=== PATIENT | male | born 1985 | race Caucasian/White ===

== ENCOUNTER 2025-01-26 16:28 | Emergency (ER) | payer OTHER, SELFPAY ==
[2025-01-26 16:34] VITALS: BP 150/91
[2025-01-26 16:53] LABS: Hematocrit 41.6 % (39.0-52.0); Hemoglobin 13.9 g/dL (13.0-18.0); Mean Corp Hgb Conc. 33.4 g/dL (33.0-37.0); Mean Corpuscular Volume 90.8 fL (80.0-94.0); Nucleated Red Blood Cells % 0 % (-); Platelet Count 214 10^3/uL (130-400); Red Cell Dist. Width 12.1 % (11.5-14.5)
[2025-01-26 17:16] LABS: ALT (SGPT) 30 U/L (0-50); AST (SGOT) 28 U/L (17-59); Albumin 4.4 g/dl (3.5-5.0); Alkaline Phosphatase 35 U/L (38-126); Blood Urea Nitrogen 24 mg/dl (9-20); Calcium 9.0 mg/dl (8.4-10.2); Carbon Dioxide 27 mmol/L (22-30); Chloride 106 mmol/L (98-107); Glucose 107 mg/dl (70-99); Potassium 4.4 mmol/L (3.5-5.1); Sodium 139 mmol/L (135-145); Total Protein 7.2 g/dl (6.3-8.2); eGFR > 60.00
[2025-01-26 17:28] LABS: Troponin I < 0.012 ng/ml
[2025-01-26 18:00] VITALS: BMI 26.8
[2025-01-26 18:05] VITALS: BP 133/84
--- NOTE | 2025-01-26 18:13 | ED.GENMED ---
History of Present Illness
General
Chief Complaint: Chest Pain
Source: patient
Time Seen by Provider: 01/26/25 17:58
History of Present Illness
History of Present Illness:
39-year-old male presents to the emergency room complaining of chest pain. Patient has been having chest pain on and off for quite some time. Recently there was a family member who had a heart attack prompting him to be more concerned about the
chest discomfort. Patient is also been concerned about his blood pressure. He measures his blood pressure every day and frequently it is in the 160s. He has an appointment with his primary care provider tomorrow to address this. Patient states
the episode of chest pain that brought him to the emergency room today started this morning. It went away about a half an hour ago. His episodes of chest pain are not related to any sort of exertion or activity. No limitation in his exercise
tolerance. He is a former smoker having quit 7 years ago.
Phy Exam
Physical Exam
Physical Exam:
General: Awake, Alert, Oriented X3. No acute distress.
Vitals: unremarkable
Head: Atraumatic
Eyes: Pupils equal, EOMI
Throat: Airway intact, no exudates
Neck: Trachea midline
Lungs: Clear and equal b/l
Heart: Regular rate, no murmurs
Abd: Soft, Nontender, No pulsatile mass
Neuro: Nonfocal
Skin: Warm, dry, no rash
Extremities: pulses equal b/l, no edema
Scores
Heart Score for Chest Pain Patients
STEMI patient?: No
History: Slightly or Non-Suspicious
ECG: Normal
Age: </= 45 years
Risk Factors: No Risk Factors
Troponin: </= Normal Limit
Heart Score for Chest Pain Patients: 0
Heart Score Risk: 2.5% MACE over next 6 weeks
Course
Orders/Labs/Results
Orders:
Orders
01/26/25 16:33
Electrocardiogram (*1) Urgent
Reason for Study: Chest Pain
01/26/25 16:34
EKG- Treatment ONCE
01/26/25 16:47
Complete Blood Count/With Diff Urgent
Comprehensive Metabolic Panel Urgent
Troponin I Urgent
01/26/25 18:13
CR Chest - 2 Views Urgent
Comment:
Reason For Exam: chest pain
01/26/25 19:02
EKG [Electrocardiogram (*1)] Urgent
Reason for Study: Chest Pain
EKG- Treatment ONCE
01/26/25 19:20
Troponin I Urgent
Abnormal Lab Results
01/26/25
16:47
RBC 4.58 L 10^6/uL
(4.70-6.10)
BUN 24 H mg/dl
(9-20)
Glucose 107 H mg/dl
(70-99)
Alkaline Phosphatase 35 L U/L
(38-126)
01/26/25 16:47
01/26/25 16:47
Vital Signs
Initial and Last Documented VS:
Initial Vital Signs
Temp Pulse Resp BP Pulse Ox
98.3 F 74 16 150/91 97
01/26/25 16:34 01/26/25 16:34 01/26/25 16:34 01/26/25 16:34 01/26/25 16:34
Last Documented Vital Signs
Temp Pulse Resp BP Pulse Ox
98.3 F 63 15 130/78 99
01/26/25 16:34 01/26/25 21:00 01/26/25 21:00 01/26/25 21:00 01/26/25 21:00
MDM/Problems Addressed
Differential Diagnosis Includes:
Coronary artery disease, pneumothorax, PACs, PVCs, anxiety
MDM/Problems Addressed:
Patient presents with nonspecific chest pain. Atypical sounding. He has been having symptoms intermittently but decided to come for evaluation after family member had some cardiac issues. EKGs here are unremarkable. No acute ischemic changes.
Troponins negative x 2. Patient notes that he feels like his heart rate decreases in rate at times. No evidence of SVT or other dysrhythmia here in the emergency room. Patient stable for discharge and outpatient follow-up with cardiology.
*Pulse Oximetry
SaO2: 97
Oxygen Mode of Delivery: Room air
Patient hypoxic: no
*EKG
Interpreted by ED Provider?: Yes
Heart Rate: 73
Rate: normal
Rhythm: sinus
[place]: normal axis
Interval: normal interval
QRS Pattern: normal QRS
Ischemia: non-specific ST changes
*M[employer]gage Loan [employer] Interpretation
Rate: normal
Interpretation: normal
Rhythm: sinus
*Critical Care Note
Total Time (30-74mins, 75-104mins- exclusive of procedures): Not Applicable
ED Attending Note
-
Portions of this chart may have been created with voice recognition software.� Occasional wrong word or��sound alike� substitutions may have occurred due to the inherent limitations of voice recognition software.
Discharge Plan
Departure
Patient Disposition: Home (Routine Discharge)
Date of Disposition: 01/26/25
Time of Disposition: 20:57
Patient with high blood pressure during this ER visit?: No
Condition: Good
Discharge Problem:
Chest pain
Instructions: Chest Pain CBC Follow Up
Referrals:
Kevin Wakefield DO [Family Provider, Family Practice]
Interventions
Interventions:
*Risk Screen - Suicide Last Done: 01/26/25 16:36
*General Assessment Last Done: 01/26/25 18:00
*Neglect/Abuse Screening Last Done: 01/26/25 16:36
*ED- Fall Risk Assessment Last Done: 01/26/25 18:00
*ED COVID-19 Vaccine History Last Done: 01/26/25 19:15
*Nursing Disposition Last Done: 01/26/25 21:10
ED- Cardiac Assessment Last Done: 01/26/25 19:15
Discharge Date and Time
Discharge Date/Time: 01/26/25 21:12
Print Language: BULGARIAN
[2025-01-26 19:18] VITALS: BP 133/82
[2025-01-26 20:00] VITALS: BP 126/90
[2025-01-26 20:01] LABS: Troponin I < 0.012 ng/ml
[2025-01-26 21:00] VITALS: BP 130/78
== END 2025-01-26 21:12 | disposition home or self-care (01) ==
LOC: EMR 16:28
PROVIDERS: EMERGENCY PHYSICIAN Emergency Medicine; FAMILY PHYSICIAN Family Medicine
DX: R07.89 Other chest pain (principal); Z87.891 Personal history of nicotine dependence
CPT/HCPCS: 99284; 71046; 80053; 84484; 85025; 93005